=== PATIENT | male | born 1935 | race Caucasian/White ===

== ENCOUNTER 2018-10-15 08:29 | Inpatient (IN) ==
[2018-10-15] MEDS ORDERED: DICYCLOMINE 20 MG/2 ML AMP IM ONE (09:01)
[2018-10-15] MEDS ORDERED: METOCLOPRAMIDE 10 MG/2 ML VIAL IV STA (09:01)
[2018-10-15 09:41] LABS: Alanine Aminotransferase 20 U/L (16-61); Albumin 3.4 G/DL (3.4-5.0); Alkaline Phosphatase 79 U/L (45-117); Amylase 49 U/L (25-115); Aspartate Amino Transferase 18 U/L (0-37); Bilirubin,Total < 0.39 MG/DL (0.2-1.0); Blood Urea Nitrogen 30 MG/DL (7-18); Calcium 8.8 MG/DL (8.5-10.1); Glucose 172 MG/DL (74-106); Total Protein 7.2 G/DL (6.4-8.3)
[2018-10-15] MEDS ORDERED: metroNIDAZOLE INJ 500 MG in PREMIX 1 EACH IV STA (09:55)
[2018-10-15] MEDS ORDERED: LEVOFLOXACIN INJ 750 MG in PREMIX 1 EACH IV STA (09:55)
[2018-10-15 09:57] LABS: Apearance,Urine CLEAR (Clear); Bilirubin,Urine Negative (Negative); Blood, Urine Negative (Negative); Glucose,Urine (UA) Negative (Negative); Ketones,Urine Negative (Negative); Mucus,Urine Occasional /LPF (Occasional); Nitrite,Urine Negative (Negative); Protein,Urine Negative; RBC,Urine 1 /HPF (0-4); Squamous Epithelial Cell,Urine Occasional /HPF (0-10); Urine Color Yellow (Yellow); Urine Specific Gravity 1.016 (1.001-1.035); Urine Urobilinogen < 2.0 EU/DL (0.2-1.0); WBC,Urine 1 /HPF (0-6)
[2018-10-15 10:15] LABS: Basophils # 0.1 10*3/uL (0.0-0.2); Basophils % 0.6 % (0.0-0.8); Eosinophils # 0.1 10*3/uL (0.0-0.87); Hematocrit 32.1 VOL% (42.0-52.0); Hemoglobin 9.5 GM/DL (14.0-18.0); Immature Granulocytes % 0.7 %; Immature Granulocytes Absolute 0.07 #; Lymphocytes # 0.9 10*3/uL (1.4-4.0); Lymphocytes % 9.1 % (21.2-54.2); Mean Corpuscular HGB Conc 29.6 GM/DL (32-36); Mean Corpuscular Volume 78.3 FL (87-102); Mean Platelet Volume 10.2 FL (9.6-12.0); Monocytes % 11.2 % (1.7-12.7); Neutrophils % 77.4 % (38.7-73.9); Platelet Count 284 T/CUMM (130-400); Red Cell Distribution Width 17.1 % (9.3-17.3); White Blood Count 9.8 T/CUMM (4-12)
[2018-10-15 10:21] LABS: INR 0.9; PT Patient Result 10.1 SECS; Partial Thromboplastin Time 24.2 SECS (0-40)
[2018-10-15] MEDS ORDERED: LACTULOSE 20 GM/30 ML UDCUP PO PRN (11:38)
[2018-10-15] MEDS ORDERED: ONDANSETRON 4 MG/2 ML VIAL IV PRN (11:38)
[2018-10-15] MEDS ORDERED: ACETAMINOPHEN 325 MG TABLET PO PRN (11:38)
[2018-10-15 12:14] LABS: Risk Ratio 2.79; Thyroid Stimulating Hormone 2.11 uIU/ml (0.358-3.74)
[2018-10-15] MEDS ORDERED: DEXTROSE 50% 25 GM/50 ML VIAL IV PRN (13:27)
[2018-10-15] MEDS ORDERED: GLUCAGON 1 MG VIAL IM PRN (13:27)
[2018-10-15] MEDS: SODIUM CHLORIDE 0.9% 1,000 ML IV SCH (13:55)
[2018-10-15] MEDS: metroNIDAZOLE INJ 500 MG in PREMIX 1 EACH IV SCH ×2 (17:11→20:17)
[2018-10-15] MEDS: INSULIN LISPRO 100 UNIT/ML SUBCUT SCH ×2 (17:31→20:51)
[2018-10-15] MEDS: ENOXAPARIN 40 MG/0.4 ML SYRINGE SUBCUT SCH (17:46)
[2018-10-15] MEDS ORDERED: FUROSEMIDE 40 MG TABLET PO SCH (21:00)
[2018-10-15] MEDS: CIPROFLOXACIN INJ 400 MG in PREMIX 1 EACH IV SCH (23:14)
[2018-10-16] MEDS: SODIUM CHLORIDE 0.9% 1,000 ML IV SCH ×2 (03:06→14:28)
[2018-10-16] MEDS: metroNIDAZOLE INJ 500 MG in PREMIX 1 EACH IV SCH ×3 (03:08→20:27)
[2018-10-16 06:06] LABS: Basophils # 0.1 10*3/uL (0.0-0.2); Basophils % 0.8 % (0.0-0.8); Eosinophils # 0.1 10*3/uL (0.0-0.87); Eosinophils % 1.7 % (0.00-10.9); Hematocrit 28.7 VOL% (42.0-52.0); Hemoglobin 8.4 GM/DL (14.0-18.0); Immature Granulocytes % 0.8 %; Immature Granulocytes Absolute 0.05 #; Lymphocytes # 0.8 10*3/uL (1.4-4.0); Lymphocytes % 13.2 % (21.2-54.2); Mean Corpuscular HGB Conc 29.3 GM/DL (32-36); Mean Corpuscular Volume 78.6 FL (87-102); Mean Platelet Volume 9.4 FL (9.6-12.0); Monocytes % 17.4 % (1.7-12.7); Neutrophils % 66.1 % (38.7-73.9); Platelet Count 230 T/CUMM (130-400); Red Blood Count 3.65 MC/CUMM (3.8-5.5); Red Cell Distribution Width 16.8 % (9.3-17.3); White Blood Count 6.4 T/CUMM (4-12)
[2018-10-16 06:21] LABS: Calcium 7.9 MG/DL (8.5-10.1); Osmolality,Calculated 285.1 MOS/KG (273-304)
[2018-10-16 06:34] LABS: Anisocytosis 1+; Eosinophils 2 % (0-10); Hypochromasia Slight; Lymphocytes 10 % (20-55); Microcytosis Slight; Platelet Estimate Adequate; Segmented Neutrophils 85 % (50-85); Total Cells Counted 100
[2018-10-16] MEDS: INSULIN LISPRO 100 UNIT/ML SUBCUT SCH ×4 (08:04→20:40)
[2018-10-16] MEDS: LISINOPRIL 10 MG TABLET PO SCH (10:43)
[2018-10-16] MEDS: SIMVASTATIN 20 MG TABLET PO SCH (10:43)
[2018-10-16] MEDS: CIPROFLOXACIN INJ 400 MG in PREMIX 1 EACH IV SCH ×2 (10:44→23:38)
[2018-10-16] MEDS: amLODIPine 5 MG TABLET PO SCH (10:44)
[2018-10-16] MEDS: ENOXAPARIN 40 MG/0.4 ML SYRINGE SUBCUT SCH (14:27)
[2018-10-16] MEDS ORDERED: SCOPOLAMINE 1.5 MG PATCH TRANSDERM SCH (22:30)
[2018-10-17] MEDS: SODIUM CHLORIDE 0.9% 1,000 ML IV SCH ×2 (03:48→19:19)
[2018-10-17] MEDS: metroNIDAZOLE INJ 500 MG in PREMIX 1 EACH IV SCH ×4 (03:50→20:08)
[2018-10-17 05:56] LABS: Basophils # 0.1 10*3/uL (0.0-0.2); Basophils % 1.1 % (0.0-0.8); Eosinophils # 0.2 10*3/uL (0.0-0.87); Eosinophils % 4.2 % (0.00-10.9); Hematocrit 28.9 VOL% (42.0-52.0); Hemoglobin 8.2 GM/DL (14.0-18.0); Immature Granulocytes % 0.6 %; Immature Granulocytes Absolute 0.03 #; Lymphocytes # 0.8 10*3/uL (1.4-4.0); Lymphocytes % 14.9 % (21.2-54.2); Mean Corpuscular HGB Conc 28.4 GM/DL (32-36); Mean Corpuscular Volume 79.8 FL (87-102); Mean Platelet Volume 9.4 FL (9.6-12.0); Monocytes % 15.5 % (1.7-12.7); Neutrophils % 63.7 % (38.7-73.9); Platelet Count 235 T/CUMM (130-400); Red Blood Count 3.62 MC/CUMM (3.8-5.5); Red Cell Distribution Width 16.6 % (9.3-17.3); White Blood Count 5.2 T/CUMM (4-12)
[2018-10-17 05:59] LABS: Hypochromasia 1+; Platelet Estimate Adequate
[2018-10-17 06:00] LABS: Microcytosis Slight; Ovalocytes Slight
[2018-10-17 06:05] LABS: Calcium 7.9 MG/DL (8.5-10.1); Osmolality,Calculated 285.1 MOS/KG (273-304)
[2018-10-17] MEDS: INSULIN LISPRO 100 UNIT/ML SUBCUT SCH ×4 (09:22→20:11)
[2018-10-17] MEDS: amLODIPine 5 MG TABLET PO SCH (09:24)
[2018-10-17] MEDS: SIMVASTATIN 20 MG TABLET PO SCH (09:24)
[2018-10-17] MEDS: LISINOPRIL 10 MG TABLET PO SCH (09:24)
[2018-10-17] MEDS: CIPROFLOXACIN INJ 400 MG in PREMIX 1 EACH IV SCH ×2 (13:17→23:00)
[2018-10-17] MEDS: ENOXAPARIN 40 MG/0.4 ML SYRINGE SUBCUT SCH (19:19)
[2018-10-18] MEDS: metroNIDAZOLE INJ 500 MG in PREMIX 1 EACH IV SCH ×3 (04:05→20:59)
[2018-10-18 04:58] LABS: Basophils # 0.1 10*3/uL (0.0-0.2); Basophils % 0.9 % (0.0-0.8); Eosinophils # 0.2 10*3/uL (0.0-0.87); Eosinophils % 3.1 % (0.00-10.9); Hematocrit 28.5 VOL% (42.0-52.0); Hemoglobin 8.2 GM/DL (14.0-18.0); Immature Granulocytes % 0.6 %; Immature Granulocytes Absolute 0.04 #; Lymphocytes # 0.8 10*3/uL (1.4-4.0); Lymphocytes % 11.8 % (21.2-54.2); Mean Corpuscular HGB Conc 28.8 GM/DL (32-36); Mean Corpuscular Volume 78.9 FL (87-102); Mean Platelet Volume 9.6 FL (9.6-12.0); Monocytes % 11.5 % (1.7-12.7); Neutrophils % 72.1 % (38.7-73.9); Platelet Count 241 T/CUMM (130-400); Red Blood Count 3.61 MC/CUMM (3.8-5.5); Red Cell Distribution Width 16.5 % (9.3-17.3); White Blood Count 6.7 T/CUMM (4-12)
[2018-10-18 05:28] LABS: Calcium 7.8 MG/DL (8.5-10.1); Osmolality,Calculated 288.8 MOS/KG (273-304)
[2018-10-18 05:58] LABS: Anisocytosis 1+; Platelet Estimate Adequate
[2018-10-18] MEDS: LISINOPRIL 10 MG TABLET PO SCH (09:33)
[2018-10-18] MEDS: amLODIPine 5 MG TABLET PO SCH (09:34)
[2018-10-18] MEDS: INSULIN LISPRO 100 UNIT/ML SUBCUT SCH ×4 (09:34→21:30)
[2018-10-18] MEDS: SIMVASTATIN 20 MG TABLET PO SCH (09:34)
[2018-10-18] MEDS: SODIUM CHLORIDE 0.9% 1,000 ML IV SCH ×2 (09:35)
[2018-10-18] MEDS: CIPROFLOXACIN INJ 400 MG in PREMIX 1 EACH IV SCH ×2 (12:07→23:16)
[2018-10-18] MEDS: IRON SUCROSE 200 MG in SODIUM CHLORIDE 0.9% 100 ML IV SCH (13:20)
[2018-10-18] MEDS: ENOXAPARIN 40 MG/0.4 ML SYRINGE SUBCUT SCH (14:23)
[2018-10-19] MEDS: metroNIDAZOLE INJ 500 MG in PREMIX 1 EACH IV SCH ×2 (04:34→13:18)
[2018-10-19] MEDS ORDERED: FUROSEMIDE 40 MG TABLET PO SCH (09:00)
[2018-10-19] MEDS: INSULIN LISPRO 100 UNIT/ML SUBCUT SCH ×2 (09:41→13:18)
[2018-10-19] MEDS: IRON SUCROSE 200 MG in SODIUM CHLORIDE 0.9% 100 ML IV SCH (09:45)
[2018-10-19] MEDS: SIMVASTATIN 20 MG TABLET PO SCH (09:46)
[2018-10-19] MEDS: LISINOPRIL 10 MG TABLET PO SCH (09:46)
[2018-10-19] MEDS: amLODIPine 5 MG TABLET PO SCH (09:46)
[2018-10-19 13:06] VITALS: BP 124/73
[2018-10-19] MEDS: CIPROFLOXACIN INJ 400 MG in PREMIX 1 EACH IV SCH (13:18)
== END 2018-10-19 12:08 | disposition home or self-care (01) | DRG 392 ==
LOC: N.ED 08:29 → SUPCPDRO 11:38 → N.EDINP 11:38 → SUATTDRO 11:38 → N.4E 13:10
PROVIDERS: ADMIT Internal Medicine; ATTEND Internal Medicine